=== PATIENT | male | born 1970 | race Caucasian/White ===

== ENCOUNTER 2020-04-25 15:27 | Outpatient (CLI) | payer OTHER, SELFPAY ==
--- NOTE | ~2020-04-25 | US_ITS ---
EXAMINATION: US soft tissue head and neck DATE: 04/25/2020 15:52 INDICATION: Left parotid mass. TECHNIQUE: Multiple grayscale and Doppler ultrasound images of the left neck were obtained. COMPARISON: CT neck 03/15/2007 FINDINGS: There is a 3.9 x 1.5 cm mixed cystic and solid lobulated hypoechoic mass in superficial lef t parotid gland. IMPRESSION: 1. Left parotid mass. The differential diagnosis includes Warthin tumor, benign mixed tumor, and less likely primary malignancy. Ultrasound-guided fine-needle aspiration is recommended. Reviewed, dictated and finalized at location A.
== END 2020-04-25 15:28 | disposition home or self-care (01) ==
PROVIDERS: PCP Emergency Medicine; Visit Provider Emergency Medicine
DX: R22.0 Localized swelling, mass and lump, head (principal)
CPT/HCPCS: 76536

== ENCOUNTER 2020-06-19 20:42 | Emergency (ER) | payer OTHER, SELFPAY ==
--- NOTE | ~2020-06-19 | XR_ITS ---
EXAMINATION: XR forearm LT 2V EXAM DATE: 06/19/2020 21:22 INDICATION: Initial encounter following injury, with pain of the left forearm. TECHNIQUE: Left forearm frontal and lateral projections obtained and reviewed. There is no prior latanya dy for comparison. FINDINGS: There are no acute fractures or dislocations identified. There is no subcutaneous gas. There is soft tissue laceration seen along the distal aspect of the left forearm, with an approximate ly 3 mm foreign body suspected inside. This finding has been indicated, marked on the examination for review, clinical correlation. IMPRESSION: Forearm laceration, probable small foreign body. Reviewed, dictated and finalized at location A.
--- NOTE | ~2020-06-19 | XR_ITS ---
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 Left hand pain. Initial encounter. TECHNIQUE: Left hand frontal, lateral and oblique projections obtained and reviewed. There is no barb or study for comparison. FINDINGS: Left metacarpal bones are unremarkable. There are no acute fractures or dislocations ident ified. There is no subcutaneous gas. The soft tissue is unremarkable. There is tiny linear foreig n body identified along the posterior medial aspect of the 2nd digit, finding indicated. IMPRESSION: Tiny sliver-like foreign body. Reviewed, dictated and finalized at location A.
[2020-06-19 20:48] VITALS: BP 151/99; PULSE 92; RESP 20; TEMP 36.5; O2SAT 100
[2020-06-19] MEDS: ONDANSETRON INJ 4 MG/2 ML VIAL IV PUSH (21:52)
--- NOTE | 2020-06-19 23:27 | ED.UPPEXIN ---
HPI - Extremity Injury (Upper) General Chief Complaint: Extremity Injury, Upper Stated Complaint: lue injury - tired of waiting at [facility] Time Seen by Provider: 06/19/20 20:58 Source: patient Mode of arrival: ambulatory Limitations: no limitations History of Present Illness HPI narrative: This patient is a 50 year old male right hand dominant who presents for evaluation of a left hand and left forearm laceration. 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 He states the metal blade of the sample tester grinder came off and cut his left forearm and left index finger. He was taken to [facility] ER 4 hours ago . He states he was waiting in the waiting room for 4 hours, and he was tired of waiting so he came to [place] [facility]. He denies any finger numbnes, tingling or weakness. He is unsure of his last tetanus. Related Data Home Medications Medication Instructions Recorded Confirmed anastrozole mg 06/19/20 06/19/20 escitalopram oxalate mg 06/19/20 testosterone cypionate mg 06/19/20 Allergies Allergy/AdvReac Type Severity Reaction Status Date / Time Penicillins Allergy Unknown Rash Verified 06/19/20 20:51 Xevjaga-Uzo-Gmj Reductase Allergy Unknown Other Verified 06/19/20 20:51 Inhibitor Review of Systems Review of Systems: All systems reviewed & are unremarkable except as noted in HPI and below PMFSH Past Medical History Medical History (Updated 06/20/20 @ 00:12 by Kianna Arriaga MD) Anxiety Depression Surgical History Surgical History (Updated 06/20/20 @ 00:11 by Kianna Arriaga MD) History of hernia repair Family History Family History (Updated 03/20/15 @ 11:24 by DOCTOR UNKNOWN) Sibling Family history of multiple sclerosis Other Family history of congestive heart failure Family history of malignant neoplasm Social History Social History Smoking status: Never smoker Alcohol intake: current Gender identity (if verbalized by the patient): Male Exam Const: General: no acute distress and alert Orientation/consciousness: patient oriented x3 HENMT: Head: normocephalic and atraumatic Face and sinus: face symmetric Mouth: Yes Normal oral and palatal mucosa present and Yes oropharynx normal Eyes: EOM: EOMs intact bilaterally Resp: Effort & Inspection: normal respiratory effort Neuro: General: patient oriented x3 and moves all extremities Extrem: Other: left index finger with 2 cmlaceration on dorsum finger going around ulnar side of finger in diagnosis, irregular edges, full range of motion , sensation intact, through subcutaneous, muscles tendons intact. left dorsum midfoream with irregular 12 cm laceration into subcutaneous tissue with clot- after cleaning, muscles intact, tendons appear intact, FROm Psych: Mental Status: mental status grossly normal Affect: normal affect Course Reevaluation(s) Reevaluation #1: I discussed with patient risk of infection with these wounds. He was given precautions. No bleeding to wounds. His arm is soft. Date: 06/20/20 Time: 00:18 Vital Signs Vital signs: Vital Signs Temperature 97.7 F 06/19/20 20:48 Pulse Rate 92 06/19/20 20:48 Respiratory Rate 20 06/19/20 20:48 Blood Pressure 151/99 H 06/19/20 20:48 Pulse Oximetry 100 06/19/20 20:48 Temperature 97.7 F 06/19/20 20:48 Pulse Rate 92 06/19/20 20:48 Respiratory Rate 20 06/19/20 20:48 Blood Pressure 151/99 H 06/19/20 20:48 Pulse Oximetry 100 06/19/20 20:48 Procedures Laceration Laceration 1: Date: 06/19/20 Time: 23:27 Site: upper extremity (left forearm) Side (If applicable): left Size (cm): 12 Description: irregular Local Anesthetic: lidocaine 1% Amount of anesthesia used (mL): 10 Pre-repair: wound explored, irrigated, irrigated extensively (1 L) and deep structures intact ====== Skin Level ====== Skin layer closed with: vicryl
[2020-06-19] MEDS: oxyCODONE/ACETAMINOPHEN 5-325 MG TABLET 1 TABLET PO (23:36)
[2020-06-20] MEDS: TETANUS,DIPHTHERIA,AC PERTUSSIS ADULT (0.5 ML) BOOSTRIX IM (00:17)
[2020-06-20 00:26] VITALS: BP 142/78; PULSE 88; RESP 16; O2SAT 99
== END 2020-06-20 00:27 | disposition home or self-care (01) ==
PROVIDERS: Emergency Provider General Practice; PCP Emergency Medicine
DX: S51.812A Laceration without foreign body of left forearm, initial encounter (principal); S61.211A Laceration without foreign body of left index finger without damage to nail, initial encounter; F41.9 Anxiety disorder, unspecified; F32.9 Major depressive disorder, single episode, unspecified; Z23 Encounter for immunization; W31.1XXA Contact with metalworking machines, initial encounter
CPT/HCPCS: 12001; 12005; 12034; 73090; 73130; 90471; 90715; 96374; 96375; 99284; A9270; J1170; J2405

== ENCOUNTER 2020-11-17 16:51 | Outpatient (CLI) | payer OTHER, SELFPAY ==
--- NOTE | ~2020-11-17 | XR_ITS ---
EXAMINATION:XR cervical spine min 6V DATE: 11/17/2020 18:11 INDICATION: Cervical spondylosis with chronic worsening neck pain TECHNIQUE: 8 views of the cervical spine including AP, lateral, lateral flexion, lateral extension, l ateral swimmers, left and right oblique and odontoid views of the cervical spine are provided. COMPARISON: None FINDINGS: Alignment is normal with normal motion on flexion and extension. Odontoid is intact. Normal atlantoa xial interval. Vertebral body heights are normal. Mild disc height loss at C5-C6 and C6-C7. Multileve l mild bilateral uncovertebral and facet osteoarthritis without significant neural foraminal stenosis on the oblique projections. Multiple surgical clips at the left side of the face and neck consistent with provided history of prior left parotidectomy. Prevertebral soft tissues are otherwise normal. T here are additional changes of prior left-sided craniotomy as seen on CT dated 03/15/2007. Visualized a pices of the lungs are clear. IMPRESSION: 1. Mild cervical spondylosis with normal motion on flexion and extension and no significant neural fo raminal stenosis. Reviewed, dictated and finalized at location A. 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 Mild cervical spondylosis with normal motion on flexion and extension and no significant neural foraminal stenosis.
== END 2020-11-17 16:52 ==
PROVIDERS: Visit Provider Emergency Medicine
DX: M47.892 Other spondylosis, cervical region (principal)
CPT/HCPCS: 72052

== ENCOUNTER → 2021-01-28 17:23 | Outpatient (CLI) | payer OTHER, SELFPAY ==
--- NOTE | ~2021-01-28 | MR_ITS ---
EXAMINATION: MR cervical spine wo con DATE: 01/28/2021 18:19 INDICATION: Neck pain. Cervical spondylosis. TECHNIQUE: Magnetic resonance imaging (MRI) of the cervical spine was performed without intravenous c ontrast. Sequences included sagittal T2-weighted FSE, sagittal STIR FSE, sagittal T1-weighted FSE, ax ial MERGE, and axial T2-weighted FSE. COMPARISON: Cervical spine radiographs 11/17/2020 FINDINGS: There is 3 degrees dextrocurvature of cervical spine. There is hypolordosis of cervical spi ne. Vertebral body heights are normal. There is mildly decreased disc height at C5-C6 and C6-C7. The spinal cord signal intensity is normal. The following disc levels are specifically discussed: C2-C3: The disc does not extend beyond the endplate margin. There is no uncovertebral joint osteoarth ritis. There is mild bilateral facet joint osteoarthritis. There is no neural foraminal stenosis. The re is no central canal stenosis. C3-C4: There is a central protrusion. There is mild right uncovertebral joint osteoarthritis. There i s no facet joint osteoarthritis. There is no neural foraminal stenosis. There is mild central canal s tenosis. C4-C5: The disc does not extend beyond the endplate margin. There is mild bilateral uncovertebral noam nt osteoarthritis. There is mild left facet joint osteoarthritis. There is no neural foraminal stenos is. There is no central canal stenosis. C5-C6: The disc is bulging and has an annular fissure. There is moderate bilateral uncovertebral join t osteoarthritis. There is mild bilateral facet joint osteoarthritis. There is mild bilateral neural foraminal stenosis. There is mild central canal stenosis with ventral indentation of the spinal cord. C6-C7: The disc does not extend beyond the endplate margin. There is mild left uncovertebral joint os teoarthritis. There is no facet joint osteoarthritis. There is no neural foraminal stenosis. There is no central canal stenosis. C7-T1: The disc does not extend beyond the endplate margin. There is no uncovertebral joint osteoarth ritis. There is mild left facet joint osteoarthritis. There is no neural foraminal stenosis. There is no central canal stenosis. IMPRESSION: 1. Mild cervical spondylosis. Reviewed, dictated and finalized at location B.
== END ==
PROVIDERS: PCP Emergency Medicine; Visit Provider Emergency Medicine
DX: M47.892 Other spondylosis, cervical region (principal)
CPT/HCPCS: 72141

== ENCOUNTER 2023-11-17 14:48 | Outpatient (CLI) | payer OTHER, SELFPAY ==
[2023-11-17 21:13] LABS: Prostate Specific Antigen 2.3 ng/mL (< OR = 4.0)
== END 2023-11-17 14:49 | disposition home or self-care (01) ==
LOC: ANHGOSHLAB 14:50
PROVIDERS: PCP Family Medicine; Visit Provider Family Medicine
DX: R97.20 Elevated prostate specific antigen [PSA] (principal)
CPT/HCPCS: 36415; 84153; G0103

== ENCOUNTER 2023-12-13 07:30 | Outpatient (RCR) | payer OTHER, SELFPAY ==
--- NOTE | 2023-10-20 16:05 | OTOPEVAL1 ---
Assessment and note entered by Dick Jacob, KAELA/Brady, CHT Evaluation Information Assessment Status Evaluation Diagnosis Pain in right elbow Subjective Information Patient reports right elbow pain for years . He states it's used to go away, but lately it's been constant. He reports the pain fluctuates throughout the day from mild to moderate. He comes in today wearing a tennis elbow strap on the right proximal forearm. He reports he is woken up at night from the pain. 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 Reported Pain Level Pain Score 2: Self Report Assessment OT Clinical Summary Patient referred to OT with right elbow pain. Symptoms are consistent with lateral epicondylitis . Skilled OT indicated for HEP instruction and progression, use of modalities, therapeutic exercise, and manual therapy to facilitate optimal pain-free use of his dominant, UE. Plan of Care Interventions Therapeutic Exercise,Manual Therapy,Therapeutic Activities,Hot Pack/Cold Pack,Ultrasound,Paraffin OT Services Indicated Yes Treatment Frequency and 1x/week for 4 weeks Duration These treatments will address the objective and functional deficits as defined above. The patient will be advanced safely and appropriately in order for the patient to progress towards his/her prior level of function. Additional exercises will be introduced and as well as a comprehensive home exercise program upon discharge, if needed, ?to ensure carryover of functional gains achieved in the clinic. This treatment plan has been reviewed and agreement upon by the patient.
--- NOTE | 2023-10-20 16:05 | OPREHPOC ---
Outpatient Therapy Plan of Care This is a Multidisciplinary Plan of Care that may contain components documented by all disciplines (PT, OT, and ST.) OT Problem 1 OT Problem #1 Knowledge Deficit OT Goal 1 Goal 1. Patient to be independent with instructed materials. Target Visit 5 OT Problem 2 OT Problem #2 Pain OT Goal 1 Goal 1. Patient to report instances of no pain in the right elbow. 2. Patient to be able to wean out of the elbow brace at work and report no pain with work tasks. Target Visit 5
--- NOTE | 2023-11-17 16:07 | OTOPPROG ---
Assessment and note entered by Dick Jacob, KAELA/Brady, CHT Evaluation Information Diagnosis Pain in right elbow Subjective Information Patient has been participating in OT x4 weeks. Patient reporting some progress with reduced pain throughout the day, especially when he stays on top of stretching and icing. He continues to be woken up at night from the pain. Continues to report mild to moderate pain throughout the day. Has been using ice and stretches to help with reduced inflammation. We have discussed talking to his doctor about an injection. Quickdash at start of care: 27.3% Quickdash today: 18.2% Assessment OT Clinical Summary Patient referred to OT with right elbow pain. Symptoms are consistent with lateral epicondylitis . He continues to present with pain with resisted wrist and finger extension which is causing pain with work tasks, using tools, etc. He is making progress with having reduced pain at times, reduced tenderness around the elbow. Continued skilled OT indicated for HEP instruction and progression, use of modalities, therapeutic exercise, and manual therapy to facilitate optimal pain-free use of his dominant, UE. Plan of Care Interventions Therapeutic Exercise,Manual Therapy,Therapeutic Activities,Hot Pack/Cold Pack,Ultrasound,Paraffin OT Services Indicated Yes Treatment Frequency and 1-2x/week for 8 visits Duration These treatments will address the objective and functional deficits as defined above. The patient will be advanced safely and appropriately in order for the patient to progress towards his/her prior level of function. Additional exercises will be introduced and as well as a comprehensive home exercise program upon discharge, if needed, ?to ensure carryover of functional gains achieved in the clinic. This treatment plan has been reviewed and agreement upon by the patient.
--- NOTE | 2023-12-20 11:33 | PCOTNOTE ---
Patient did not show up for scheduled appointment this date. Called patient and he did not answer. Unable to leave a voicemail.
--- NOTE | 2023-12-29 07:37 | OTOPDC ---
Assessment and note entered by Dick Jacob, OTR/L, CHT OT Discharge Notification 12/16/23 OT Clinical Summary Hair was being seen for right lateral epicondylitis. Patient called and cancelled all therapy appointments due to a work situation . D/C OT per patient request. Please refer to progress note, dated 11/17/23, for most recent summary.
== END 2023-12-29 08:58 | disposition home or self-care (01) ==
LOC: ANHOT 07:30
PROVIDERS: PCP Family Medicine; Visit Provider Family Medicine
DX: M25.521 Pain in right elbow (principal)
CPT/HCPCS: 97018; 97035; 97110; 97140; 97165; 99199

== ENCOUNTER 2024-05-31 08:29 | Outpatient (CLI) | payer OTHER, SELFPAY ==
[2024-05-31 14:36] LABS: Alanine Aminotransferase 28 U/L (6-50); Albumin Level 4.6 g/dL (3.5-5.1); Alkaline Phosphatase 66 U/L (38-126); Anion Gap 8 mmol/L (4-12); Aspartate Amino Transferase 52 U/L (17-59); Bilirubin,Total 0.9 mg/dL (0.2-1.3); Blood Urea Nitrogen 20 mg/dL (9-20); Carbon Dioxide 27 mmol/L (22-30); Chloride 101 mmol/L (98-107); Cholesterol 225 mg/dL (0-200); Estimated Glomerular Filt Rate > 60; Glucose 86 mg/dL (65-110); HDL Direct 63 mg/dL; Potassium 4.1 mmol/L (3.4-5.0); Sodium 136 mmol/L (137-145); Triglycerides 62 mg/dL (<150)
[2024-05-31 14:47] LABS: LDL Cholesterol Direct 134 mg/dL
[2024-05-31 15:23] LABS: Prostate Specific Antigen 3.4 ng/mL (< OR = 4.0)
== END 2024-05-31 08:30 | disposition home or self-care (01) ==
LOC: ANHGOSHLAB 08:30
PROVIDERS: PCP Family Medicine; Visit Provider Family Medicine
DX: E78.5 Hyperlipidemia, unspecified (principal); Z13.228 Encounter for screening for other metabolic disorders; Z12.5 Encounter for screening for malignant neoplasm of prostate
CPT/HCPCS: 36415; 80053; 80061; 84153; G0103

== ENCOUNTER 2025-08-22 12:37 | Outpatient (CLI) | payer OTHER, SELFPAY ==
--- OUTSIDE RECORDS SUMMARY | 2025-08-22 13:10 | XMS_ITS | Clinical Summary ---
Author Organization [facility] Address [facility] [place] [address] Care Team Providers Care Correctional Captain Name Role Phone Howie Clark MD Primary Care Provider + [phone] Allergies Active Allergy Reactions Criticality Noted Date Comments Penicillin Hives Medium 04/10/2020 Medications escitalopram (LEXAPRO) 10 mg tabletIndicatio ns:Anxiety with Depression Take 1 tablet (10 mg total) by mouth every morning Active testosterone cypionate (DEPO-TESTOTERO NE) 200 mg/mL injection Inject 1 mL (200 mg total) into the muscle as instructed once a week 0 Active anastrozole (ARIMIDEX) 1 mg tablet Take 2 tablets (2 mg total) by mouth once a week 0 Active TADALAFIL ORAL Take by mouth 27.5mg compounded by phaJumptapy. Take 1/4 tablet every other morning Active clomiPHENE (CLOMID) 50 mg tablet Take 0.5 tablets (25 mg total) by mouth 2 (two) times a week Active omega-3 fatty acids-fish oil 300-1,000 mg capsuleIndicati ons:supplement Take 1 capsule (1 g total) by mouth every morning Active cholecalciferol (VITAMIN D-3) 07349 unit capsuleIndicati ons:Prevention of Vitamin D Deficiency Take 1 capsule (10,000 Units total) by mouth every morning Active vitamin b complex tabletIndicatio ns:Vitamin Deficiency Prevention Take 1 tablet by mouth every morning Active ALPRAZolam (Xanax) 0.5 mg tablet Please take one tablet one hour before MRI and one tablet as needed one hour after exam 2 tablet 2 Active diazePAM (VALIUM) 5 mg tablet Take one pill one hour before MRI and one pill one hour after as needed for anxiety. 2 tablet 2 Active diazePAM (VALIUM) 5 mg tablet Take one tablet 30-45 minutes before MRI and one tablet as needed after exam. 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 Total parotidectomy with nerve preservation. Sacrifice of 2 buccal branches. The remainder of the nerve branches intact. 2. Nerve graft 3 cm left buccal branch with the nerve from greater auricular nerve. 3. Adipofascial parascapular fat graft. Neck mass 05/13/2020 Surgical History Surgery Date Site/Laterality Comments CRANIOTOMY 10/10/1996 - 10/09/1997 COLONOSCOPY WISDOM TOOTH EXTRACTION PAROTIDECTOMY 10/10/2006 - 10/09/2007 HERNIA REPAIR x 3 CYSTOSCOPY CRANIOPLASTY Medical History Medical History Date Comments Depression Parotid adenoma PONV (postoperative nausea and vomiting) after cranioplasty Family History Medical History Relation Name Comments Multiple sclerosis Sister Anesthesia problems Neg Hx Relation Name Status Comments Sister Social History Tobacco Use Types Packs/Day Years Used Date Smoking Tobacco: Former Cigarettes 1 22 1 990 - 05/13/2010 Smokeless Tobacco: Never Tobacco Cessation:Counseling Given: Not Answered Alcohol Use Standard Drinks/Week Comments Yes 12 (1 standard drink = 0.6 oz pu re alcohol) per week Sex and Gender Information Value Date Recorded Sex Assigned at Not on file 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 Gender Identity Male 01/20/2022 8:24 AM CDT Sexual Orientation Not on file Last Filed Vital Signs Vital Sign Reading Time Taken Comments Blood Pressure 116/70 03/28/2024 4:55 PM CDT Pulse 88 03/28/2024 4:55 PM CDT Temperature 36.8 C (98.3 F) 03/28/2024 4:55 PM CDT Respiratory Rate 18 03/28/2024 4:55 PM CDT Oxygen Saturation 97% 03/28/2024 4:55 PM CDT Inhaled Oxygen Concentration - - Weight 95.3 kg (210 lb) 03/28/2024 4:55 PM CDT Height 182.9 cm (6') 03/28/2024 4:55 PM CDT Body Mass Index 28.48 03/28/2024 4:55 PM CDT Plan of Treatment Health Maintenance Due Date Last Done Comments Colon Cancer Screening-Colonoscopy 1972 Depression Screening 1972 Hepatitis C Screening 1972 Prostate Cancer Screening-PSA 1972 Hepatitis B Screening 1990 Regular Well Visit/Exam 18-64 1990 Pneumococcal vaccine <65 (1 of 2 - PCV) 1991 Zoster Vaccine (1 of 2) 1991 Influenza Vaccine (#1) 2025 DTaP/Tdap/Td Vaccine (2 - Td or Tdap) 06/20/203008/2020 Medical Devices Implanted Type Area Hotel General Manager Device Identifier Shelf Expiration Date Model / Serial / Lot [employer] [id number] [place] Microvascular Anastomoses 4mm Mass Spectroscopist Anastomosis Sterile - [id number] Implanted:Qty: 1 on 06/06/2020 by Jyoti You MD at [facility] [employer] [id number] 11/08/2024 [id number] / / [id number] Insurance [facility] [id number] Advance Directives For more information, please contact: [phone] * Full Code (Latest Code Status on File) Date Activated Date Inactivated Comments 06/06/2020 4:16 PM 06/07/2020 9:19 PM Care Teams Correctional Captain Relationship Specialty Start Date End Date Howie Clark MD [address] [facility] [place] [address] PCP - General Family Medicine 05/09/20
[2025-08-22 19:02] LABS: Hematocrit 43.6 % (42.0-52.0); Hemoglobin 14.6 g/dL (14.0-18.0); Mean Corpuscular HGB Conc 33.5 g/dl (32-36); Mean Corpuscular Hemoglobin 31.3 pg (26-34); Mean Corpuscular Volume 93.4 fl (80-100); Platelet Count Result 268 k/mm3 (150-375); Red Blood Count 4.67 M/mm3 (4.6-6.20); White Blood Count 4.4 K/mm3 (4.5-10.0)
[2025-08-22 19:20] LABS: Alanine Aminotransferase 24 U/L (6-50); Albumin Level 4.7 g/dL (3.5-5.1); Alkaline Phosphatase 71 U/L (38-126); Anion Gap 7 mmol/L (4-12); Aspartate Amino Transferase 39 U/L (17-59); Bilirubin,Total 0.8 mg/dL (0.2-1.3); Blood Urea Nitrogen 16 mg/dL (9-20); Calcium 9.0 mg/dL (8.4-10.2); Carbon Dioxide 25 mmol/L (22-30); Chloride 105 mmol/L (98-107); Cholesterol 222 mg/dL (0-200); Estimated Glomerular Filt Rate > 60; Glucose 76 mg/dL (65-110); HDL Direct 58 mg/dL; Potassium 4.1 mmol/L (3.4-5.0); Sodium 137 mmol/L (137-145); Total Protein 7.5 g/dL (6.3-8.2); Triglycerides 51 mg/dL (<150)
[2025-08-22 19:56] LABS: Prostate Specific Antigen 3.5 ng/mL (< OR = 4.0); Thyroid Stimulating Hormone 0.919 uIU/mL (0.465-4.680)
== END 2025-08-22 12:38 | disposition home or self-care (01) ==
LOC: ANHGOSHLAB 12:38
PROVIDERS: PCP Family Medicine; Visit Provider Family Medicine
DX: G47.00 Insomnia, unspecified (principal); E78.5 Hyperlipidemia, unspecified; Z79.899 Other long term (current) drug therapy
CPT/HCPCS: 36415; 80053; 80061; 84153; 84443; 85027; G0103